=== PATIENT | male | born 1980 | race Caucasian/White ===

== ENCOUNTER 2020-03-25 06:44 | Emergency (ER) | payer SELFPAY ==
[2020-03-25 06:50] VITALS: BP 159/87; PULSE 98; RESP 16; TEMP 36.9; O2SAT 97
--- NOTE | 2020-03-25 07:42 | ED.UPPEXIN ---
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 It has not arrived in the mail. Three or 4 days ago he developed pain and swelling in his right shoulder. (There is a small skin bump on his shoulder which is particularly painful.) It has been getting progressively worse. He rates the pain 20/10. It is sharp. Any movement of his arm exacerbates the pain. Medical marijuana decreases the pain somewhat. he has tried baclofen with little improvement. He has not taken NSAIDs. He denies injury or trauma to the shoulder. He drove from [place] to [place] 2 days ago. His gout primarily involves his hands feet and right elbow. It is never involved his shoulders. He takes pegloticase infusions every 2 weeks. [facility] Related Data Home Medications Medication Instructions Recorded Confirmed allopurinol [Zyloprim] 300 mg PO BID 10/16/19 03/25/20 amlodipine [Norvasc] 10 mg PO DAILY 10/16/19 03/25/20 baclofen 10 mg PO BID 10/16/19 03/25/20 colchicine 0.6 mg PO DAILY 10/16/19 03/25/20 duloxetine 120 mg PO DAILY 10/16/19 03/25/20 ergocalciferol (vitamin D2) 50,000 unit PO WEEKLY 10/16/19 03/25/20 [Vitamin D2] gabapentin 900 mg PO TID 10/16/19 03/25/20 lisinopril 40 mg PO DAILY 10/16/19 03/25/20 prazosin 3 mg PO HS 10/16/19 03/25/20 Allergies Allergy/AdvReac Type Severity Reaction Status Date / Time No Known Allergies Allergy Verified 10/16/19 23:15 Review of Systems Constitutional: Constitutional: Denies chills and Denies fever(s) Respiratory: Respiratory: Denies dyspnea Gastrointestinal: Gastrointestinal: Denies abdominal pain, Reports nausea (transient nausea relieved with burping. ) and Denies vomiting Musculoskeletal: Musculoskeletal: Reports no additional musculoskeletal complaints (no acute flare of gout elsewhere. ) Integumentary/Breasts: Comments: See HPI. There are small bumps along anterior belt line. 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 When walking he is hunched over with his right arm splinted Const: Orientation/consciousness: patient oriented x3 Neck: Neck: normal visual inspection and no lymphadenopathy Other: Cervical paravertebral muscle tenderness. GI: GI Palp: Yes Soft to palpation and No Tenderness to palpation present (GI) Skin: Other: Small light brown nevus over acromion which is tender when touched. It is not red or inflamed. Small non-inflamed papules scattered along anterior pant belt line. Neuro: General: patient oriented x3 Other: pinprick sensation intact right forearm. Strength testing of right U.E. limited by pain. Extrem: Other: Right arm adducted, internally rotated, elbow flexed 90 degrees. Right shoulder posterior swelling. No redness or warmth. Pain with minimal abduction or external rotation of shoulder. Tender posterior>lateral/anterior subcromial region. No pain with elbow or wrist flex/extension. 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 Concerned about co
[2020-03-25] MEDS: predniSONE 20 MG TABLET 40 MG PO (07:45)
[2020-03-25 08:06] VITALS: BP 158/60; PULSE 72; RESP 18; TEMP 36.6
== END 2020-03-25 08:08 | disposition home or self-care (01) ==
PROVIDERS: Emergency Provider Family Medicine
DX: M10.9 Gout, unspecified (principal)
CPT/HCPCS: 99283; J7512

== ENCOUNTER 2023-09-07 14:17 | Emergency (ER) | payer MEDICARE, MEDICAID, SELFPAY ==
[2023-09-07 14:18] VITALS: BP 154/101; PULSE 80; RESP 18; TEMP 37.4; O2SAT 95
[2023-09-07 14:22] VITALS: BP 154/101
--- NOTE | 2023-09-07 14:28 | ED.EXTPRO ---
HPI - Extremity Problem General Chief complaint: Extremity Injury, Upper Stated complaint: upper body pain Time Seen by Provider: 09/07/23 14:27 Source: patient and RN notes reviewed Mode of arrival: ambulatory Limitations: no limitations History of Present Illness Complaint: extremity pain Onset (ago): day(s) (4-5) Pain Consistency: constant Location: left, right and upper extremity Quality: burning, aching and constant Radiation: none Relieving factors: nothing Exacerbating factors: nothing Associated symptoms: denies other symptoms Context: history of gout Related Data Allergies Allergy/AdvReac Type Severity Reaction Status Date / Time No Known Allergies Allergy Verified 09/07/23 14:21 [facility] Past Medical History Medical History Anxiety Depression Hypertension MRSA (methicillin resistant staph aureus) culture positive PTSD (post-traumatic stress disorder) Tophaceous gout Surgical History Surgical History History of back surgery 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 2018 Social History Social History Alcohol use details: does not drink alcohol Substance use type: does not use Gender identity (if verbalized by the patient): Male Exam Const: General: healthy appearing, no acute distress and alert Nutritional Appearance: well nourished and obese Orientation/consciousness: patient oriented x3 Limitations: no limitations HENMT: Head: normal to inspection Ears: external ears normal Face/Nose/Sinus: Normal external nose present Face and sinus: normal facial exam Mouth: Yes moist mucous membranes Eyes: Conjunctivae: conjunctivae normal Pupils: Equal, round and reactive pupils present EOM: EOMs intact bilaterally Neck: Neck: normal visual inspection Resp: Effort & Inspection: normal respiratory effort Auscultation: clear to auscultation bilaterally Cardio: Rate: regular rate Rhythm: regular rhythm GI: GI Palp: Yes Soft to palpation and No Tenderness to palpation present (GI) Auscultation: normal bowel sounds Back/Spine/Pelvis: Cervical Spine: cervical ROM normal Thoracic/Lumbar Spine: thoraco-lumbar ROM normal Skin: General skin exam: normal color Rashes: no rashes Neuro: General: patient oriented x3, moves all extremities, no focal motor deficits and CN's II-XI intact bilaterally Speech: normal speech Gait exam (Neuro): Normal gait present Extrem: General: edema bilateral ( Upper extremities mostly in the hands) Other: bilateral upper extremities have tenderness in the joints of the hand more severe in the wrists and the elbows. Psych: Mental Status: mental status grossly normal Affect: normal affect Attitude: cooperative Course Vital Signs Vital signs: Vital Signs Temperature 37.4 C 09/07/23 14:18 Pulse Rate 80 09/07/23 14:18 Respiratory Rate 18 09/07/23 14:18 Blood Pressure 154/101 H 09/07/23 14:18 Pulse Oximetry 95 09/07/23 14:18 Oxygen Delivery Room Air 09/07/23 14:18 Temperature 37.4 C 09/07/23 14:18 Pulse Rate 80 09/07/23 14:18 Respiratory Rate 18 09/07/23 14:18 Blood Pressure 154/101 H 09/07/23 14:22 Pulse Oximetry 95 09/07/23 14:18 Oxygen Delivery Room Air 09/07/23 14:18 MDM - Extremity (Nontraumatic) Differential Diagnosis Differential diagnosis: Likely gout and cellulitis Discharge Plan Discharge Clinical Impression: Tophaceous gout Patient Disposition: Home, Self-Care Condition: Stable Instructions: Gout (ED) Prescriptions: New indomethacin 50 mg capsule 50 mg PO TID 10 Days Qty: 30 0RF Rx Instructions: administer with food or milk Follow-up/Referrals: Dev,Luana Estrada MD [Primary Care Provider] - Time of Disposition: 15:27
[2023-09-07 15:05] LABS: Basophils Absolute Auto 0.11 K/mm3 (0.00-0.10); Basophils Percent Auto 0.8 % (0.0-1.0); Eosinophils Absolute Auto 0.56 K/mm3 (0.02-0.50); Hematocrit 42.2 % (40.0-54.0); Hemoglobin 13.7 g/dL (14.0-18.0); Immature Granulocyte Absolute 0.32 K/mm3 (0.00-0.00); Immature Granulocyte Percent A 2.3 % (0.0-0.0); Lymphocytes Absolute Auto 3.64 K/mm3 (1.10-4.50); Lymphocytes Percent Auto 25.9 % (18.0-42.0); Mean Corpuscular HGB Conc 32.5 g/dL (32.0-36.0); Mean Corpuscular Hemoglobin 27.9 pg (27.0-31.0); Mean Corpuscular Volume 85.9 fL (78.0-102.0); Mean Platelet Volume 9.6 fl (8.7-11.0); Monocytes Absolute Auto 1.12 K/mm3 (0.10-0.90); Neutrophils Absolute Auto 8.3 K/mm3 (1.7-7.2); Platelet Count Result 348 K/mm3 (150-420); Red Blood Count 4.91 M/mm3 (4.70-6.10); Red Cell Distribution Width 13.2 % (11.6-14.4); White Blood Count 14.1 K/mm3 (4.8-10.8)
[2023-09-07 15:14] VITALS: BP 170/105
[2023-09-07 15:16] LABS: Anion Gap 6 mmol/L (8-16); Blood Urea Nitrogen 18 mg/dL (7-18); CRP 3.3 mg/dL (0.0-0.9); Carbon Dioxide 32 mmol/L (21-32); Chloride 100 mmol/L (98-108); Estimated CRCL calculation 106 ml/min; Estimated Glomerular Filt Rate > 60; Glucose 132 mg/dL (70-99); Osmolality Calculated 289 mOsm/kg (285-295); Potassium 3.9 mmol/L (3.5-5.1); Sodium 138 mmol/L (136-145); Uric Acid 9.1 mg/dL (3.5-7.2)
[2023-09-07 15:17] VITALS: BP 163/103
[2023-09-07] MEDS: KETOROLAC (*BKC) 60 MG/2 ML VIAL IM (15:38)
[2023-09-07 15:51] VITALS: BP 167/105; PULSE 77; RESP 17; TEMP 36.6; O2SAT 97
== END 2023-09-07 15:51 | disposition home or self-care (01) ==
PROVIDERS: Emergency Provider Emergency Medicine; PCP Family Medicine
DX: M1A.9XX1 Chronic gout, unspecified, with tophus (tophi) (principal); I10 Essential (primary) hypertension
CPT/HCPCS: 36415; 80048; 84550; 85025; 86140; 96372; 99283; J1885